=== PATIENT | female | born 1980 | race Caucasian/White ===

== ENCOUNTER 2021-01-14 08:57 | Emergency (ER) | payer OTHER, SELFPAY ==
--- NOTE | ~2021-01-14 | XR_ITS ---
EXAMINATION: [id number] EXAM DATE: 01/14/2021 10:07 INDICATION: Left-sided chest pain with inspiration. TECHNIQUE: Frontal projection of the upper left ribs, frontal projection of the lower left ribs, obli que projection of the left ribs, frontal chest x-ray(s) for interpretation. There is no prior study for comparison. FINDINGS: Subacute appearing left 11th rib fracture posteriorly. There are no displaced acute left ri b fractures identified. There is no soft tissue abnormality seen. No confluent consolidation, pneumo thorax or pleural effusion suspected. Cardiomediastinal silhouette is normal. IMPRESSION: Subacute left 11th rib fracture posteriorly. Can't exclude reinjury to this as cause for patient's symptoms. Reviewed, dictated and finalized at location A. IMPRESSION: Subacute left 11th rib fracture posteriorly. Can't exclude reinjur y to this as cause for patient's symptoms.
[2021-01-14 09:05] VITALS: BP 127/86; PULSE 108; RESP 18; TEMP 36.6; O2SAT 97
--- NOTE | 2021-01-14 09:57 | ED.GENADULT ---
HPI - General Adult General Chief complaint: Back Pain/Injury Stated complaint: Rib cage pain Time Seen by Provider: 01/14/21 09:50 Source: patient and RN notes reviewed Mode of arrival: ambulatory Limitations: no limitations History of Present Illness HPI narrative: Patient presents today complaining of left rib pain x1 month. Reports it is anterior, lateral, and posterior, shoots [id number]. Pain has been progressively worsening since onset. Denies illness, shortness of breath, injury. Pain increases with coughing, deep breaths, and movement. Currently rates her pain 7/10. She tried a few ibuprofen at onset of symptoms without relief. Patient states she smokes 2 to 3 cigarettes/day, then smokes marijuana every night. States her pain is worse when she is smoking the marijuana, especially when her lungs are at their fullest when she is inhaling. MD complaint: Left rib pain Related Data Home Medications Medication Instructions Recorded Confirmed brexpiprazole [Rexulti] mg 01/14/21 loratadine mg 01/14/21 pravastatin 01/14/21 venlafaxine mg PO 01/14/21 verapamil mg PO 01/14/21 Allergies Allergy/AdvReac Type Severity Reaction Status Date / Time No Known Allergies Allergy Verified 01/14/21 09:23 Review of Systems Review of Systems: Narrative: CONSTITUTIONAL: Denies body aches, fever, chills, or sweats. EYES: Denies visual changes, redness, or discharge. ENT: Denies rhinorrhea, congestion, sore throat, or otalgia. CARDIOVASCULAR: Denies chest pain, palpitations, or edema. RESPIRATORY: Denies cough or dyspnea. GASTROINTESTINAL: Denies abdominal pain, nausea, vomiting, or diarrhea. GENITOURINARY: Denies dysuria or hematuria. SKIN: Denies rash, itching, or wounds. MUSCULOSKELETAL: Denies back pain, joint pain, or myalgia.+ Left rib pain NEUROLOGIC: Denies headache, numbness, tingling, or weakness. PSYCH: Denies depression or anxiety. [facility] Past Medical History Medical History (Updated 01/14/21 @ 10:25 by Sandra Doyle, [place], [place]) High cholesterol Hypertension Social History Social History (Updated 01/14/21 @ 10:00 by Sandra Doyle, [employer], [facility]) Smoking status: Current every day smoker Tobacco type: cigarettes Substance use: current Substance use type: marijuana Comments At time of signature, I have reviewed and agree with nursing past medical, surgical, social and family history unless otherwise noted. Please see nursing chart for further information. There is no relevant family history pertinent to the presenting complaint Exam Narrative: Exam Narrative: GENERAL: Well-appearing, well-nourished, and in no acute distress. HEAD: Normocephalic, atraumatic. EYES: EOMI. No redness or drainage. Conjunctivae normal. ENT: Mucous membranes pink and moist. NECK: Normal AROM. CHEST: No respiratory distress. Clear to auscultation. Mild tenderness to the left lower ribs, anterior, lateral, and posterior. No crepitus, deformity noted. HEART: Regular rate and rhythm. No murmur appreciated. Normal peripheral pulses. ABDOMEN: Soft, nontender, nondistended, normal active bowel sounds. EXTREMITIES: Normal range of motion. No edema. SKIN: Warm, dry, no rash. Capillary refill normal. Normal skin turgor. NEURO: No focal deficits. Alert and oriented x3. Gait steady. PSYCH: Normal affect. No signs of depression or anxiety. Course Course Emergency Course: After discussing x-ray results with patient, she now states that she did cough very severely prior to onset of symptoms and states she felt a explosion in her back and believes this may have caused the fracture. She did initially tell her doctor about it, but was then told that she may have strained her muscles. Vital Signs Vital signs: Vital Signs Temperature 97.8 F 01/14/21 09:05 Pulse Rate 108 H 01/14/21 09:05 Respiratory Rate 18 01/14/21 09:05 Blood Pressure 127/86 01/14/21 09:05 Pulse Oximetry 97 01/14/21 09:05 Tem
== END 2021-01-14 10:32 | disposition home or self-care (01) ==
PROVIDERS: Emergency Provider Nurse Practitioner; PCP Internal Medicine
DX: S22.32XA Fracture of one rib, left side, initial encounter for closed fracture (principal); X58.XXXA Exposure to other specified factors, initial encounter; F17.210 Nicotine dependence, cigarettes, uncomplicated; E78.00 Pure hypercholesterolemia, unspecified; I10 Essential (primary) hypertension
CPT/HCPCS: 71101; 99203; G0463

== ENCOUNTER 2021-08-29 08:05 | Emergency (ER) | payer OTHER, SELFPAY ==
[2021-08-29 08:10] VITALS: BP 151/79; PULSE 110; RESP 20; TEMP 36.6; O2SAT 100
--- NOTE | 2021-08-29 08:12 | ED.URI ---
HPI - URI/Sore Throat General Chief Complaint: Upper Respiratory Infection Stated Complaint: body aches,loss of taste and smell,back pain Time Seen by Provider: 08/29/21 08:12 Source: patient and RN notes reviewed Mode of arrival: ambulatory Limitations: no limitations History of Present Illness HPI Narrative: Elli is a 40-year-old female patient who ambulated into the [facility]. Patient states she has a 3-day history of nasal congestion and headache which started on August 26. She states that on August 28 she started with body aches loss of taste and smell. She does have a history of hypertension, depression, anxiety, she has had her Covid vaccines. Currently is she is taking Xyzal and [facility] cold medicine. She also states she has left posterior rib pain. She had a broken rib in December 2020. She states her son has had similar complaints MD elicited complaint: nasal congestion and sinus pain Related Data Home Medications Medication Instructions Recorded Confirmed brexpiprazole [Rexulti] 1 mg PO DAILY 01/14/21 08/29/21 loratadine 10 mg PO DAILY 01/14/21 08/29/21 pravastatin 40 mg PO DAILY 01/14/21 08/29/21 venlafaxine 37.5 mg PO DAILY 01/14/21 08/29/21 verapamil 120 mg PO DAILY 01/14/21 08/29/21 Allergies Allergy/AdvReac Type Severity Reaction Status Date / Time No Known Allergies Allergy Verified 08/29/21 08:25 Review of Systems Review of Systems: CONSTITUTIONAL: + body aches, fever, chills, or sweats. EYES: Denies visual changes, redness, or discharge. ENT: + rhinorrhea,+ congestion, denies sore throat, or otalgia. CARDIOVASCULAR: Denies chest pain, palpitations, or edema. RESPIRATORY: Denies cough or dyspnea. GASTROINTESTINAL: Denies abdominal pain, nausea, vomiting, or diarrhea. GENITOURINARY: Denies dysuria or hematuria. SKIN: Denies rash, itching, or wounds. MUSCULOSKELETAL: Denies back pain, joint pain, or myalgia. NEUROLOGIC: Denies headache, numbness, tingling, or weakness. PSYCH: Denies depression or anxiety. All systems reviewed & are unremarkable except as noted in HPI and below PMFSH Past Medical History Medical History (Updated 08/29/21 @ 08:43 by JESSICA Dawkins) High cholesterol Hypertension Social History Social History (Updated 01/14/21 @ 10:00 by Sandra Doyle, [facility], ) Smoking status: Current every day smoker Tobacco type: cigarettes Substance use: current Substance use type: marijuana Comments At time of signature, I have reviewed and agree with nursing past medical, surgical, social and family history unless otherwise noted. Please see nursing chart for further information. There is no relevant family history pertinent to the presenting complaint Exam Narrative: GENERAL: Well-appearing, well-nourished, and in no acute distress. HEAD: Normocephalic, atraumatic. EYES: EOMI. No redness or drainage. Conjunctivae normal. ENT: Mucous membranes pink and moist. Nasal passages erythemic, clear rhinorrhea. TMs dull, moderate bulging . Throat minimally erythemic, clear post nasal drainage noted. Uvula midline. NECK: Normal AROM. Supple. No lymphadenopathy. CHEST: No respiratory distress. Clear to auscultation. HEART: Regular rate and rhythm. No murmur appreciated. Normal peripheral pulses. ABDOMEN: Soft, nontender, nondistended, normal active bowel sounds. MUSCULOSKELETAL: No bony tenderness. EXTREMITIES: Normal range of motion. No edema. SKIN: Warm, dry, no rash. Capillary refill normal. Normal skin turgor. NEURO: No focal deficits. Alert and oriented x3. Gait steady. PSYCH: Normal affect. No signs of depression or anxiety. Course Vital Signs Vital signs: Reviewed. Pt has been instructed to follow up with her PCP regarding her elevated blood pressure today. MDM - URI/Sore Throat MDM Narrative Medical decision making narrative: Influenza test is. Patient was instructed that she will be set up for a Covid test
== END 2021-08-29 08:55 | disposition home or self-care (01) ==
PROVIDERS: Emergency Provider Nurse Practitioner Family; PCP Internal Medicine
DX: B34.9 Viral infection, unspecified (principal); Z20.822 Contact with and (suspected) exposure to COVID-19; E78.00 Pure hypercholesterolemia, unspecified; I10 Essential (primary) hypertension; F17.210 Nicotine dependence, cigarettes, uncomplicated; F32.A Depression, unspecified; F41.9 Anxiety disorder, unspecified
CPT/HCPCS: 87804; 99213; G0463

== ENCOUNTER → 2021-08-31 02:39 | Outpatient (CLI) | payer OTHER, SELFPAY ==
[2021-08-31 16:20] LABS: SARS-CoV-2 RNA PCR Positive
== END ==
PROVIDERS: Visit Provider Nurse Practitioner Family
DX: U07.1 COVID-19 (principal); R43.0 Anosmia
CPT/HCPCS: C9803; U0003; U0005